=== PATIENT | female | born 1975 | race Caucasian/White ===

== ENCOUNTER 2018-04-15 07:29 | Emergency (ER) | payer MEDICAID ==
[~2018-04-15] VITALS: Ht 152.4 cm; Wt 73.5 kg
[2018-04-15 07:45] VITALS: BP_SYST 146
[2018-04-15] MEDS ORDERED: KETOROLAC TROMETHAMINE 60 MG/2 ML VIAL IM ONE (08:00)
[2018-04-15 08:30] VITALS: BP_SYST 140
== END 2018-04-15 08:30 | disposition home or self-care (01) ==
LOC: SED 07:29
DX: M94.0 Chondrocostal junction syndrome [Tietze] (principal); Z88.6 Allergy status to analgesic agent
CPT/HCPCS: 81025; 96372; 99283; J1885; 93005

== ENCOUNTER 2018-08-22 19:15 | Emergency (ER) | payer MEDICAID ==
[~2018-08-22] VITALS: Ht 152.4 cm; Wt 70.3 kg
[2018-08-22 19:40] VITALS: BP_SYST 133
--- NOTE | 2018-08-23 00:03 | NUR ---
Patient to ER bed doe to gown for evaluation. Side rails up. Report given to Kendra CEVALLOS.
--- NOTE | 2018-08-23 00:05 | NUR ---
Patient to ER via triage for evaluation of cough and congestion at home, patient also reports fevers and vomiting. Patient is awake, alert and oriented in no acute distress, vital signs stable, respirations even and unlabored, no increase noted in work of breathing, skin warm and dry to touch. Patient able to ambulate without difficulty with slow, steady gait to hallway. Awaiting evaluation by ER MD, will continue to observe and assess.
--- NOTE | 2018-08-23 00:28 | NUR ---
pt moved to bed 7
--- NOTE | 2018-08-23 00:43 | NUR ---
ER at bedside examining patient.
[2018-08-23] MEDS ORDERED: NACL 0.9% 1,000 ML IV ONE (00:44)
[2018-08-23] MEDS ORDERED: FAMOTIDINE PF 20 MG/2 ML VIAL IVP ONE (00:45)
[2018-08-23] MEDS ORDERED: ONDANSETRON HCL 4 MG/2 ML VIAL IVP ONE (00:45)
[2018-08-23] MEDS ORDERED: KETOROLAC TROMETHAMINE 30 MG VIAL IVP ONE (00:45)
--- NOTE | 2018-08-23 01:35 | NUR ---
Patient resting quietly in no acute distress, IV fluids infusing without difficulty, no redness or swelling noted at site. Awaiting dispo, no adverse reaction noted to medication.
--- NOTE | 2018-08-23 02:35 | NUR ---
Dr Hall at bedside speaking with patient regarding results and plan of care, questions answered by Dr Hall.
[2018-08-23 03:10] VITALS: BP_SYST 118
--- NOTE | 2018-08-23 03:10 | NUR ---
Patient given written and verbal discharge instructions and verbalizes understanding. ER MD discussed with patient the results and treatment provided. Patient in stable condition. ID arm band removed. IV catheter removed intact and dressing applied, no active bleeding. Rx of Zofran, Ibuprofen given. Patient educated on pain management and to follow up with PMD. Pain Scale 0. Opportunity for questions provided and answered. Medication side effect fact sheet provided. Patient left ER in no acute distress, able to ambulate without difficulty with slow, steady gait. No adverse reaction noted to medication.
== END 2018-08-23 03:10 | disposition home or self-care (01) ==
LOC: SED 19:15
DX: J11.1 Influenza due to unidentified influenza virus with other respiratory manifestations (principal); Z88.6 Allergy status to analgesic agent
CPT/HCPCS: 86710; 96361; 96374; 96375; 99283; J1885; J2405; J3490; J7030; 36415